=== PATIENT | male | born 1990 | race Two or more races ===

== ENCOUNTER 2017-04-10 19:11 | Emergency (ER) | payer SELFPAY ==
[~2017-04-10] VITALS: Ht 167.6 cm; Wt 45.4 kg
[2017-04-10] MEDS ORDERED: ACETAMINOPHEN 325 MG TAB PO ONE (19:45)
[2017-04-10] MEDS ORDERED: cloNIDine HCL 0.1 MG TAB PO ONE (19:45)
[2017-04-10 21:14] VITALS: BP 147/97
== END 2017-04-10 22:05 | disposition home or self-care (01) ==
LOC: ER 19:18
DX: M20.011 Mallet finger of right finger(s) (principal); F17.200 Nicotine dependence, unspecified, uncomplicated
CPT/HCPCS: 29130; 73140

== ENCOUNTER 2018-12-22 10:58 | Emergency (ER) | payer OTHER ==
[~2018-12-22] VITALS: Ht 152.4 cm; Wt 79.4 kg
[2018-12-22] MEDS ORDERED: cloNIDine HCL 0.1 MG TAB PO ONE (11:15)
[2018-12-22 13:01] VITALS: BP 134/99
== END 2018-12-22 13:13 | disposition home or self-care (01) ==
LOC: ER 10:58
DX: M25.512 Pain in left shoulder (principal); F17.210 Nicotine dependence, cigarettes, uncomplicated; F12.10 Cannabis abuse, uncomplicated; R03.0 Elevated blood-pressure reading, without diagnosis of hypertension
CPT/HCPCS: 73030

== ENCOUNTER 2018-12-22 20:34 | Emergency (ER) | payer OTHER ==
[~2018-12-22] VITALS: Ht 170.2 cm; Wt 80.7 kg
[2018-12-22] MEDS ORDERED: cloNIDine HCL 0.1 MG TAB PO ONE ×2 (21:00→23:30)
[2018-12-23] MEDS ORDERED: cloNIDine HCL 0.1 MG TAB PO ONE (02:00)
[2018-12-23 04:58] VITALS: BP 137/89
== END 2018-12-23 06:02 | disposition home or self-care (01) ==
LOC: ER 20:44
DX: S43.402A Unspecified sprain of left shoulder joint, initial encounter (principal); I10 Essential (primary) hypertension; F17.210 Nicotine dependence, cigarettes, uncomplicated; F12.10 Cannabis abuse, uncomplicated; X58.XXXA Exposure to other specified factors, initial encounter; Y93.89 Activity, other specified; Y92.89 Other specified places as the place of occurrence of the external cause; Y99.8 Other external cause status
CPT/HCPCS: 36415; 73030; 84484; 94761